=== PATIENT | female | born 1950 | race Caucasian/White ===

== ENCOUNTER 2022-09-17 08:29 | Emergency (ER) | payer OTHER, MEDICAID ==
[~2022-09-17] VITALS: Ht 172.7 cm; Wt 52.2 kg
[2022-09-17 08:30] VITALS: BP 108/79; PULSE 84; TEMP 98.3; O2SAT 0
--- NOTE | 2022-09-17 08:39 | NUR ---
Patient BIBA to room 8.
--- NOTE | 2022-09-17 08:47 | NUR ---
Dr. Jennings evaluating patient at bedside.
[2022-09-17] MEDS ORDERED: KETOROLAC 30 MG/ML VIAL IM ONE (08:50)
--- NOTE | 2022-09-17 08:58 | NUR ---
FOOT XRAY BEING DONE AT BEDSIDE AT PRESENT.
[2022-09-17] MEDS ORDERED: IBUP-2213 PO (10:38)
[2022-09-17] MEDS ORDERED: ACET-5636 PO (10:38)
--- NOTE | 2022-09-17 10:45 | NUR ---
EMT EDUCATING/DEMONSTRAITING PT ON CRUTCH WALKING. CRUTCHES PROVIDED TO PT. PT UNWILLING TO TRY TO AMBULATE WITH CRUTCHES. DAUGHTER AT BS WITH PT. ORTHO SHOE PROVIDED. PT TO BE DISCHARGED ONCE DUPS IS AVAILABLE.
--- NOTE | 2022-09-17 10:57 | NUR ---
DR. ESCOBAR AT THE EXPLAINING TO THE PT/DAUGHTER THE FINDINGS OF THE X-RAY RESULTS/DISCHARGE INSTRUCTIONS.
[2022-09-17 11:03] VITALS: BP 151/74; PULSE 74; RESP 18; TEMP 98; O2SAT 98
--- NOTE | 2022-09-17 11:06 | NUR ---
Patient discharged with v/s stable. Written and verbal after care instructions given and explained. Patient alert, oriented and verbalized understanding of instructions. Wheel Chair Assisted with to car. All questions addressed prior to discharge. ID band removed. Patient advised to follow up with PMD. Rx of OXYCODONE AND IBUPROFEN given. Patient educated on indication of medication including possible reaction and side effects. Opportunity to ask questions provided and answered. PT ESCORTED OUT BY W/C BY EMT'S.
== END 2022-09-17 11:03 | disposition home or self-care (01) ==
LOC: MED 08:29
DX: S92.312A Displaced fracture of first metatarsal bone, left foot, initial encounter for closed fracture (principal); F03.90 Unspecified dementia, unspecified severity, without behavioral disturbance, psychotic disturbance, mood disturbance, and anxiety; I10 Essential (primary) hypertension; F41.9 Anxiety disorder, unspecified; G40.909 Epilepsy, unspecified, not intractable, without status epilepticus; Z79.899 Other long term (current) drug therapy; X50.1XXA Overexertion from prolonged static or awkward postures, initial encounter; Y93.89 Activity, other specified; Y92.89 Other specified places as the place of occurrence of the external cause; Y99.8 Other external cause status
CPT/HCPCS: 29515; 73630; 96372; 99283; J1885

== ENCOUNTER 2023-01-28 02:55 | Emergency (ER) | payer OTHER, MEDICAID ==
[~2023-01-28] VITALS: Ht 172.7 cm; Wt 51.7 kg
[~2023-01-28 02:55] MED LIST: ACET-5636 PO; IBUP-2213 PO
[2023-01-28 03:02] VITALS: BP 104/68; PULSE 100; RESP 16; TEMP 97.1; O2SAT 95
== END 2023-01-28 04:15 ==
LOC: MED 02:55
DX: R25.1 Tremor, unspecified (principal); F03.90 Unspecified dementia, unspecified severity, without behavioral disturbance, psychotic disturbance, mood disturbance, and anxiety; I10 Essential (primary) hypertension; Z79.899 Other long term (current) drug therapy
CPT/HCPCS: 99283

== ENCOUNTER 2023-04-06 07:58 | Inpatient (IN) | payer OTHER, MEDICAID ==
[~2023-04-06] VITALS: Ht 162.6 cm; Wt 59.0 kg
[2023-04-06 07:59] VITALS: BP 128/72; PULSE 87; RESP 16; O2SAT 98
[2023-04-06] MEDS ORDERED: cefTRIAXone 1,000 MG VIAL ONE (08:38)
[2023-04-06 09:17] LABS: ANION GAP 7.1 (8-16); CALCIUM 9.1 mg/dL (8.5-10.1); CARBON DIOXIDE 33.5 mmol/L (21-32); CHLORIDE 100 mmol/L (98-107); CREATININE 0.9 mg/dL (0.6-1.3); GLUCOSE 107 mg/dL (74-106); POTASSIUM 4.6 mmol/L (3.5-5.1); SODIUM SERUM 136 mmol/L (136-145); UREA NITROGEN, BLOOD 17 mg/dL (7-18)
[2023-04-06 09:25] LABS: LACTIC ACID 0.8 mmol/L (0.4-2.0)
[2023-04-06] MEDS: cefTRIAXone 1,000 MG in DEXT 5% MINI-BAG PLUS 50 ML IV ONE (09:29)
[2023-04-06] MEDS: NACL 0.9% 1,000 ML IV SCH ×2 (09:30→12:22)
[2023-04-06 10:40] LABS: BASOPHILS # (AUTO) 0.1 K/uL (0.00-0.22); BASOPHILS % (AUTO) 0.6 % (0.0-2.0); EOSINOPHILS % (AUTO) 0.3 % (0.0-4.0); HEMATOCRIT 40.8 % (36-48); LYMPHOCYTES # (AUTO) 1.3 K/uL (2.5-16.5); LYMPHOCYTES % (AUTO) 13.9 % (20.5-51.1); MEAN CORPUSCULAR HEMOGLOBIN 31 pg (27-31); MEAN CORPUSCULAR HGB CONC 34 g/dL (33-37); MEAN CORPUSCULAR VOLUME 91.3 fL (80-94); MONOCYTES # (AUTO) 0.6 K/uL (0.8-1.0); MONOCYTES % (AUTO) 6.1 % (1.7-9.3); NEUTROPHILS # (AUTO) 7.2 K/uL (1.8-7.7); NEUTROPHILS % (AUTO) 79.1 % (42.2-75.2); PLATELET COUNT (AUTO) 202 K/uL (140-450); RED BLOOD CELL COUNT(AUTO) 4.47 MIL/uL (4.20-5.40); RED CELL DISTRIBUTION WIDTH 13.3 % (11.6-13.7); WHITE BLOOD COUNT (AUTO) 9.1 K/uL (4.8-10.8)
[2023-04-06 11:34] LABS: APPEARANCE,URINE CLEAR (CLEAR); BILIRUBIN,URINE NEGATIVE (NEGATIVE); BLOOD, URINE NEGATIVE (NEGATIVE); COLOR,URINE YELLOW (YELLOW); LEUKOCYTE ESTERASE ,URINE NEGATIVE (NEGATIVE); NITRITE, URINE NEGATIVE (NEGATIVE); PROTEIN,URINE 2+ (NEGATIVE); UGLUCOSE NEGATIVE (NEGATIVE); UROBILINOGEN,URINE 0.2 EU/dL (0.2 - 1)
[2023-04-06 11:39] LABS: BACTERIA,URINE OCCASSIONAL /HPF (None Seen); RBC,URINE 0-5 /HPF (0-5); SQUAMOUS EPITHELIAL CELL,UR 0-3 (FEW) /LPF (0-3 (FEW)); WBC,URINE 0-5 /HPF (0-5)
[2023-04-06 11:40] LABS: MUCUS,URINE 1+ /LPF (None Seen)
[2023-04-06] MEDS ORDERED: BUS5 PO (11:44)
[2023-04-06] MEDS ORDERED: DONE5TAB6 PO (11:48)
[2023-04-06] MEDS ORDERED: CARB1TAB39 PO (11:48)
[2023-04-06] MEDS ORDERED: FERR325E14 PO (11:48)
[2023-04-06] MEDS ORDERED: LEVE500T9 PO (11:48)
[2023-04-06] MEDS ORDERED: OFLO5SOL27 OT (11:50)
[2023-04-06] MEDS ORDERED: POTA10TA70 PO (11:51)
[2023-04-06] MEDS ORDERED: SERT100T PO (11:52)
[2023-04-06] MEDS ORDERED: ONDANSETRON 4 MG/2 ML VIAL IVP PRN (12:10)
[2023-04-06] MEDS ORDERED: ACETAMINOPHEN 325 MG TAB PO PRN (12:10)
[2023-04-06 13:14] LABS: FLU A ANTIGEN negative (NEGATIVE); FLU B ANTIGEN negative (NEGATIVE)
[2023-04-06 14:15] VITALS: O2SAT 98
[2023-04-06] MEDS: FERROUS SULFATE 325 MG TABEC PO SCH (14:51)
[2023-04-06 16:00] VITALS: BP 142/70; PULSE 76; RESP 14; TEMP 98.4; O2SAT 98
[2023-04-06 17:32] VITALS: PULSE 76; RESP 14; O2SAT 98
[2023-04-06 20:00] VITALS: BP 132/73; PULSE 75; RESP 18; TEMP 97.3; O2SAT 94
[2023-04-06] MEDS: levETIRAcetam 500 MG TAB PO SCH (20:34)
[2023-04-06] MEDS: busPIRone 5 MG TAB PO SCH (20:34)
[2023-04-06] MEDS ORDERED: NON-FORMULARY ITEM (Levetiracetam* (Keppra Xr*) 1 TAB) PO SCH (21:00)
[2023-04-06] MEDS ORDERED: VANCOMYCIN PER PHARMACY MC PRN (21:55)
[2023-04-06] MEDS ORDERED: VANCOMYCIN IV SCH (23:30)
[2023-04-06] MEDS ORDERED: NS IV SCH (23:30)
[2023-04-07 05:23] LABS: BASOPHILS % (AUTO) 0.7 % (0.0-2.0); EOSINOPHILS # (AUTO) 0.1 K/uL (0-0.4); EOSINOPHILS % (AUTO) 0.9 % (0.0-4.0); HEMATOCRIT 39.4 % (36-48); HEMOGLOBIN 13.6 g/dL (12.0-16.0); LYMPHOCYTES # (AUTO) 1.3 K/uL (2.5-16.5); LYMPHOCYTES % (AUTO) 16.9 % (20.5-51.1); MEAN CORPUSCULAR HEMOGLOBIN 31 pg (27-31); MEAN CORPUSCULAR HGB CONC 34 g/dL (33-37); MEAN CORPUSCULAR VOLUME 90.7 fL (80-94); MONOCYTES # (AUTO) 0.5 K/uL (0.8-1.0); NEUTROPHILS # (AUTO) 5.7 K/uL (1.8-7.7); NEUTROPHILS % (AUTO) 74.5 % (42.2-75.2); PLATELET COUNT (AUTO) 198 K/uL (140-450); RED BLOOD CELL COUNT(AUTO) 4.35 MIL/uL (4.20-5.40); RED CELL DISTRIBUTION WIDTH 13.2 % (11.6-13.7); WHITE BLOOD COUNT (AUTO) 7.6 K/uL (4.8-10.8)
[2023-04-07 05:33] LABS: ANION GAP 11.9 (8-16); CALCIUM 8.7 mg/dL (8.5-10.1); CARBON DIOXIDE 27.5 mmol/L (21-32); CHLORIDE 104 mmol/L (98-107); CREATININE 0.7 mg/dL (0.6-1.3); GLUCOSE 105 mg/dL (74-106); POTASSIUM 4.4 mmol/L (3.5-5.1); SODIUM SERUM 139 mmol/L (136-145); UREA NITROGEN, BLOOD 14 mg/dL (7-18)
[2023-04-07 08:00] VITALS: BP 120/73; PULSE 85; RESP 18; TEMP 98.9; O2SAT 98
[2023-04-07] MEDS: CARBIDOPA/LEVODOPA 25/100 MG 1 TAB PO SCH (08:00)
[2023-04-07] MEDS: VANCOMYCIN 500 MG in DEXTROSE 5% 100 ML IV SCH (09:00)
[2023-04-07] MEDS: SERTRALINE 50 MG TAB PO SCH (09:33)
[2023-04-07] MEDS: DONEPEZIL 10 MG TAB PO SCH (09:34)
[2023-04-07] MEDS: MAGNESIUM OXIDE 400 MG TAB PO SCH (09:36)
[2023-04-07 16:00] VITALS: BP 144/75; PULSE 72; RESP 18; TEMP 97.8; O2SAT 99
[2023-04-07 20:00] VITALS: PULSE 72; RESP 18; O2SAT 99
[2023-04-08 04:00] VITALS: BP 145/79; PULSE 59; RESP 18; TEMP 97.5; O2SAT 96
[2023-04-08 05:52] LABS: BASOPHILS % (AUTO) 0.6 % (0.0-2.0); EOSINOPHILS # (AUTO) 0.1 K/uL (0-0.4); EOSINOPHILS % (AUTO) 1.1 % (0.0-4.0); HEMATOCRIT 39.2 % (36-48); HEMOGLOBIN 13.2 g/dL (12.0-16.0); LYMPHOCYTES % (AUTO) 15.4 % (20.5-51.1); MEAN CORPUSCULAR HEMOGLOBIN 31 pg (27-31); MEAN CORPUSCULAR HGB CONC 34 g/dL (33-37); MEAN CORPUSCULAR VOLUME 91.6 fL (80-94); MONOCYTES # (AUTO) 0.4 K/uL (0.8-1.0); MONOCYTES % (AUTO) 6.4 % (1.7-9.3); NEUTROPHILS # (AUTO) 5.1 K/uL (1.8-7.7); NEUTROPHILS % (AUTO) 76.5 % (42.2-75.2); PLATELET COUNT (AUTO) 198 K/uL (140-450); RED BLOOD CELL COUNT(AUTO) 4.27 MIL/uL (4.20-5.40); RED CELL DISTRIBUTION WIDTH 13.2 % (11.6-13.7); WHITE BLOOD COUNT (AUTO) 6.7 K/uL (4.8-10.8)
[2023-04-08 06:13] LABS: ANION GAP 9.3 (8-16); CALCIUM 8.3 mg/dL (8.5-10.1); CARBON DIOXIDE 29.6 mmol/L (21-32); CHLORIDE 104 mmol/L (98-107); CREATININE 0.7 mg/dL (0.6-1.3); GLUCOSE 104 mg/dL (74-106); POTASSIUM 3.9 mmol/L (3.5-5.1); SODIUM SERUM 139 mmol/L (136-145); UREA NITROGEN, BLOOD 16 mg/dL (7-18)
[2023-04-08 08:00] VITALS: PULSE 76; RESP 17; O2SAT 99
[2023-04-08 16:03] VITALS: BP 140/140; PULSE 74; RESP 18; TEMP 97.9
[2023-04-08 16:21] VITALS: BP 140/74; PULSE 73; RESP 18; TEMP 97.9
[2023-04-10] MEDS ORDERED: CARBIDOPA/LEVODOPA 25/100 MG 1 TAB PO SCH (09:00)
== END 2023-04-08 17:10 | DRG 641 ==
LOC: MED 07:58 → MMU 12:11 → MTU 13:00
PROVIDERS: ADMIT Student in an Organized Health Care Education/Training Program; ATTEND Student in an Organized Health Care Education/Training Program
DX: R62.7 Adult failure to thrive (principal); N39.0 Urinary tract infection, site not specified; E83.42 Hypomagnesemia; Z20.822 Contact with and (suspected) exposure to COVID-19; G20.A1 Parkinson's disease without dyskinesia, without mention of fluctuations; R56.9 Unspecified convulsions; Z68.22 Body mass index [BMI] 22.0-22.9, adult; Z79.2 Long term (current) use of antibiotics; Z79.899 Other long term (current) drug therapy
CPT/HCPCS: 36415; 71045; 80048; 81001; 83605; 83735; 83880; 84484; 85025; 87040; 87081; 87086; 93005; 96361; 96365; 97112; 97116; 97530; 99285; J0696; J3370; J7060

== ENCOUNTER 2023-05-21 04:02 | Emergency (ER) | payer OTHER, MEDICAID ==
[~2023-05-21] VITALS: Ht 170.2 cm; Wt 49.9 kg
[2023-05-21 04:02] VITALS: BP 135/90; PULSE 74; RESP 18; TEMP 97.6; O2SAT 97
[~2023-05-21 04:02] MED LIST changes: +BUS5 PO; +CARB1TAB39 PO; +DONE5TAB6 PO; +FERR325E14 PO; +LEVE500T9 PO; +OFLO5SOL27 OT; +POTA10TA70 PO; +SERT100T PO
[2023-05-21 05:34] VITALS: O2SAT 96
[2023-05-21 06:30] LABS: BASOPHILS # (AUTO) 0.1 K/uL (0.00-0.22); EOSINOPHILS % (AUTO) 0.5 % (0.0-4.0); HEMATOCRIT 42.2 % (36-48); HEMOGLOBIN 14.6 g/dL (12.0-16.0); LYMPHOCYTES # (AUTO) 0.8 K/uL (2.5-16.5); LYMPHOCYTES % (AUTO) 12.1 % (20.5-51.1); MEAN CORPUSCULAR HEMOGLOBIN 32 pg (27-31); MEAN CORPUSCULAR HGB CONC 35 g/dL (33-37); MEAN CORPUSCULAR VOLUME 92.1 fL (80-94); MONOCYTES # (AUTO) 0.4 K/uL (0.8-1.0); MONOCYTES % (AUTO) 5.1 % (1.7-9.3); NEUTROPHILS # (AUTO) 5.6 K/uL (1.8-7.7); NEUTROPHILS % (AUTO) 81.3 % (42.2-75.2); PLATELET COUNT (AUTO) 189 K/uL (140-450); RED BLOOD CELL COUNT(AUTO) 4.59 MIL/uL (4.20-5.40); RED CELL DISTRIBUTION WIDTH 12.7 % (11.6-13.7); WHITE BLOOD COUNT (AUTO) 6.9 K/uL (4.8-10.8)
[2023-05-21 06:35] LABS: APPEARANCE,URINE CLEAR (CLEAR); BILIRUBIN,URINE NEGATIVE (NEGATIVE); BLOOD, URINE TRACE-L (NEGATIVE); COLOR,URINE YELLOW (YELLOW); LEUKOCYTE ESTERASE ,URINE NEGATIVE (NEGATIVE); NITRITE, URINE NEGATIVE (NEGATIVE); PROTEIN,URINE NEGATIVE (NEGATIVE); UGLUCOSE NEGATIVE (NEGATIVE); UROBILINOGEN,URINE 0.2 EU/dL (0.2 - 1)
[2023-05-21 06:44] LABS: ANION GAP 10.7 (8-16); CALCIUM 8.9 mg/dL (8.5-10.1); CARBON DIOXIDE 30.6 mmol/L (21-32); CHLORIDE 101 mmol/L (98-107); CREATININE 0.8 mg/dL (0.6-1.3); GLUCOSE 100 mg/dL (74-106); POTASSIUM 4.3 mmol/L (3.5-5.1); SODIUM SERUM 138 mmol/L (136-145); UREA NITROGEN, BLOOD 16 mg/dL (7-18)
[2023-05-21 06:47] LABS: INR 0.97 (0.8-1.2); PARTIAL THROMBOPLASTIN TIME 24.3 secs (22-35.6); PROTHROMBIN TIME 10.2 secs (10.8-13.4)
[2023-05-21 06:51] LABS: BACTERIA,URINE OCCASSIONAL /HPF (None Seen); RBC,URINE 0-5 /HPF (0-5); SQUAMOUS EPITHELIAL CELL,UR 0-3 (FEW) /LPF (0-3 (FEW)); WBC,URINE 0-5 /HPF (0-5)
[2023-05-21 06:51] LABS: LACTIC ACID 0.8 mmol/L (0.4-2.0)
[2023-05-21 06:57] LABS: ALBUMIN 3.6 g/dL (3.4-5.0); BILIRUBIN,DIRECT 0.1 mg/dL (0.0-0.3); TOTAL BILIRUBIN 0.5 mg/dL (0.0-1.0); TOTAL PROTEIN, SERUM 7.2 g/dL (6.4-8.2)
[2023-05-21] MEDS ORDERED: NAPR-54 PO (08:13)
[2023-05-21 09:16] VITALS: BP 107/56; PULSE 81; RESP 20; TEMP 97.4
== END 2023-05-21 09:16 ==
LOC: MED 04:02
DX: S32.10XA Unspecified fracture of sacrum, initial encounter for closed fracture (principal); J45.909 Unspecified asthma, uncomplicated; F03.90 Unspecified dementia, unspecified severity, without behavioral disturbance, psychotic disturbance, mood disturbance, and anxiety; Z86.69 Personal history of other diseases of the nervous system and sense organs; Z79.899 Other long term (current) drug therapy; W18.39XA Other fall on same level, initial encounter; Y92.129 Unspecified place in nursing home as the place of occurrence of the external cause; Y93.89 Activity, other specified; Y99.8 Other external cause status
CPT/HCPCS: 36415; 70450; 71045; 72125; 72192; 80048; 80076; 81001; 83605; 85025; 85610; 85730; 87040; 87086; 93005; 99285